=== PATIENT | female | born 2000 | race Caucasian/White ===

== ENCOUNTER 2023-05-13 20:13 | Emergency (ER) | payer BC ==
[~2023-05-13] VITALS: Ht 162.6 cm; Wt 50.0 kg
[2023-05-13 20:19] VITALS: BP 134/68; PULSE 100; RESP 16; TEMP 98.7; O2SAT 94
== END 2023-05-13 20:56 | disposition left against medical advice (07) ==
LOC: ER 20:13
DX: F10.129 Alcohol abuse with intoxication, unspecified (principal); F41.9 Anxiety disorder, unspecified; F32.9 Major depressive disorder, single episode, unspecified; Y90.0 Blood alcohol level of less than 20 mg/100 ml
CPT/HCPCS: 99283